=== PATIENT | male | born 1975 | race Caucasian/White ===

== ENCOUNTER 2017-11-21 18:43 | Emergency (ER) | payer OTHER ==
[~2017-11-21 18:43] MED LIST changes: -HYDR-2966 PO; -LISI-374 PO; -NEBI20TA4 PO; -RANI-318 PO
--- NOTE | 2017-11-21 18:49 | ER Report ---
History and Physical Time Seen By MD: 18:49 Home Meds Active Scripts Atenolol (ATENOLOL) 50 Mg Tablet, 1 TAB PO QDAY, #30 TAB Prov:TODD MANZO 11/12/16 Hx Substance Use Disorder: No Hx Alcohol Use: Yes Depart Departure Condition: Stable Disposition: HOME OR SELF-CARE KYRIE CARRERAP-BC Nov 21, 2017 18:49
--- NOTE | 2017-11-21 18:51 | ER Report ---
History and Physical Time Seen By MD: 18:51 HPI/ROS CHIEF COMPLAINT: Headache, vision changes, weakness HISTORY OF PRESENT ILLNESS: 42-year-old male alcoholic attempting to quit on his own at home. His wean down significantly from his heavy use of alcohol 12 drinks per day. He is on blood pressure medication. He admits to eye openers, blackouts. He denies withdrawal seizures. Patient's never sought treatment before. Patient states he hasn't eaten for 3 days. He states he's been avoiding salt. He is on 3 blood pressure medications lisinopril 40, by systolic 20 and hydrochlorothiazide 25 mg. Patient notes no fever, chills or productive cough. Patient notes blurry vision, headache and weakness. He states that he successfully detoxed at home and has not had any alcohol since a week ago . He shows no signs of withdrawal at this time. Patient's only previous ER visit was one year ago for prison clearance for alcohol intoxication. REVIEW OF SYSTEMS: Respiratory: No cough, no dyspnea. Cardiovascular: No chest pain, no palpitations. Gastrointestinal: No vomiting, no abdominal pain. Musculoskeletal: No back pain. 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 Patient denies any surgical history. Reviewed Nurses Notes: Yes Old Medical Records Reviewed: Yes Hx Substance Use Disorder: No Hx Alcohol Use: Yes Constitutional Vital Sign - Last 24 Hours 11/21/17 11/21/17 11/21/17 11/21/17 18:48 18:49 18:53 18:58 Temp 98.5 Pulse ??? 67 71 65 Resp 14 B/P (MAP) 100/53 (69) 100/53 Pulse Ox 96 97 93 O2 Delivery Room Air 11/21/17 11/21/17 11/21/17 11/21/17 19:00 19:03 19:06 19:08 Pulse 64 62 Resp 50 B/P (MAP) 73/45 (54) 84/48 (60) 72/48 (56) Pulse Ox 72 96 11/21/17 11/21/17 11/21/17 11/21/17 19:13 19:15 19:18 19:23 Pulse 63 64 61 Resp 13 14 13 B/P (MAP) 72/42 (52) Pulse Ox 96 95 94 11/21/17 11/21/17 11/21/17 11/21/17 19:28 19:30 19:45 19:50 Pulse 61 59 Resp 13 15 B/P (MAP) 128/94 (105) 60/42 (48) Pulse Ox 97 11/21/17 11/21/17 11/21/17 11/21/17 19:59 20:05 20:10 20:15 Pulse 60 55 56 Resp 13 15 15 B/P (MAP) 75/43 (54) 69/39 (49) Pulse Ox 97 93 O2 Delivery 11/21/17 11/21/17 11/21/17 11/21/17 20:30 20:35 20:40 21:00 Pulse 50 53 Resp 11 13 11 14 B/P (MAP) 74/46 (55) 87/61 (70) Pulse Ox 94 88 96 11/21/17 11/21/17 11/21/17 11/21/17 21:05 21:10 21:15 21:20 Pulse 51 Resp 23 19 14 9 B/P (MAP) 74/40 (51) Pulse Ox 100 11/21/17 11/21/17 11/21/17 11/21/17 21:25 21:30 21:35 21:40 Pulse 51 58 51 53 Resp 18 9 11 15 B/P (MAP) 80/51 (61) 88/55 (66) Pulse Ox 93 66 92 93 11/21/17 11/21/17 11/21/17 11/21/17 21:45 21:50 21:55 22:00 Pulse 55 50 50 52 Resp 11 12 13 20 B/P (MAP) 89/50 (63) 81/61 (68) Pulse Ox 94 89 85 82 Physical Exam Vital signs stable, afebrile, pulse ox normal General Appearance: The patient is alert, has no immediate need for airway protection and no current signs of toxicity. No acute distress, slow quiet affect HEENT: Pupils equal and round no injection. Anicteric sclera, oropharynx without redness or exudate, mucous. Membranes are moist Respiratory: Chest is non tender, lungs are clear to auscultation. No wheezing or rails Cardiac: regular rate and rhythm Gastrointestinal: Abdomen is soft and non tender, no masses, bowel sounds normal. No splenomegaly, no ascites Musculoskeletal: Neck: Neck is supple and non tender. No thyroid disease Extremities have full range of motion and are non tender. Skin: No rashes or lesions. DIFFERENTIAL DIAGNOSIS: After history and physical exam differential diagnosis was considered for weakness including but not limited to electrolyte abnormali ty, depression, anxiety, CVA, spinal cord abnormality, and infectious causes. Medical Decision Making Data Points Result Diagram: 11/21/17191511/21/171915 Laboratory Hematology Test 11/21/17 19:16 Red Blood Count 4.34 M/uL (4.00-5.60) Mean Corpuscular Volume 91.6 fL (80.0-96.0) Mean Corpuscular Hemoglobin 33.0 pg (26.0-33.0) Mean Corpuscular Hemoglobin Concent 36.1 g/dL (32.0-36.0) Red Cell Distribution Width 13.8 % (11.5-14.5) Mean Platelet Volume 8.0 fL (7.2-11.1) Neutrophils (%) (Auto) 65.1 % (39.4-72.5) Lymphocytes (%) (Auto) 23.4 % (17.6-49.6) Monocytes (%) (Auto) 8.4 % (4.1-12.4) Eosinophils (%) (Auto) 2.0 % (0.4-6.7) Basophils (%) (Auto) 1.1 % (0.3-1.4) Nucleated RBC Relative Count (auto) 0.1 /100WBC Neutrophils # (Auto) 4.7 K/uL (2.0-7.4) Lymphocytes # (Auto) 1.7 K/uL (1.3-3.6) Monocytes # (Auto) 0.6 K/uL (0.3-1.0) Eosinophils # (Auto) 0.1 K/uL (0.0-0.5) Basophils # (Auto) 0.1 K/uL (0.0-0.1) Nucleated RBC Absolute Count (auto) 0.01 K/uL Sodium Level 112 mmol/L (137-145) Potassium Level 2.8 mmol/L (3.5-5.0) Chloride Level 68 mmol/L (98-107) Carbon Dioxide Level 30 mmol/L (22-30) Blood Urea Nitrogen 49 mg/dl (9-21) Creatinine 4.60 mg/dl (0.66-1.25) Glomerular Filtration Rate Calc 14.0 Random Glucose 135 mg/dl (75-110) Calcium Level 8.3 mg/dl (8.4-10.2) Magnesium Level 2.1 mg/dl (1.7-2.2) Total Bilirubin 0.7 mg/dl (0.2-1.3) Aspartate Amino Transf (AST/SGOT) 41 U/L (0-35) Alanine Aminotransferase (ALT/SGPT) 35 U/L (0-56) Alkaline Phosphatase 90 U/L (0-126) Ammonia 27 UMOL/L (9-33) Total Protein 6.4 g/dl (6.3-8.2) Albumin 3.6 g/dl (3.5-5.0) Salicylates Level < 10 mg/L Salicylate Last Dose Date unk Acetaminophen Level 15 ug/ml Serum Alcohol < 10 mg/dl Chemistry Test 11/21/17 19:16 White Blood Count 7.1 k/uL (4.5-11.0) Red Blood Count 4.34 M/uL (4.00-5.60) Hemoglobin 14.3 g/dL (14.0-18.0) Hematocrit 39.7 % (42.0-52.0) Mean Corpuscular Volume 91.6 fL (80.0-96.0) Mean Corpuscular Hemoglobin 33.0 pg (26.0-33.0) Mean Corpuscular Hemoglobin Concent 36.1 g/dL (32.0-36.0) Red Cell Distribution Width 13.8 % (11.5-14.5) Platelet Count 260 K/uL (150-450) Mean Platelet Volume 8.0 fL (7.2-11.1) Neutrophils (%) (Auto) 65.1 % (39.4-72.5) Lymphocytes (%) (Auto) 23.4 % (17.6-49.6) Monocytes (%) (Auto) 8.4 % (4.1-12.4) Eosinophils (%) (Auto) 2.0 % (0.4-6.7) Basophils (%) (Auto) 1.1 % (0.3-1.4) Nucleated RBC Relative Count (auto) 0.1 /100WBC Neutrophils # (Auto) 4.7 K/uL (2.0-7.4) Lymphocytes # (Auto) 1.7 K/uL (1.3-3.6) Monocytes # (Auto) 0.6 K/uL (0.3-1.0) Eosinophils # (Auto) 0.1 K/uL (0.0-0.5) Basophils # (Auto) 0.1 K/uL (0.0-0.1) Nucleated RBC Absolute Count (auto) 0.01 K/uL Glomerular Filtration Rate Calc 14.0 Calcium Level 8.3 mg/dl (8.4-10.2) Magnesium Level 2.1 mg/dl (1.7-2.2) Total Bilirubin 0.7 mg/dl (0.2-1.3) Aspartate Amino Transf (AST/SGOT) 41 U/L (0-35) Alanine Aminotransferase (ALT/SGPT) 35 U/L (0-56) Alkaline Phosphatase 90 U/L (0-126) Ammonia 27 UMOL/L (9-33) Total Protein 6.4 g/dl (6.3-8.2) Albumin 3.6 g/dl (3.5-5.0) Salicylates Level < 10 mg/L Salicylate Last Dose Date unk Acetaminophen Level 15 ug/ml Serum Alcohol < 10 mg/dl Toxicology Test 11/21/17 19:16 Salicylates Level < 10 mg/L Salicylate Last Dose Date unk Acetaminophen Level 15 ug/ml Serum Alcohol < 10 mg/dl EKG/Imaging EKG Interpretation 12 lead EK Rhythm: normal sinus rhythm, rate of 62 bpm [place]: normal QRS: normal, prolonged QT noted ST segments: normal, no evidence of ischemia or dysrhythmia, no old EKGs for comparison Imaging X-ray: Two-view chest x-ray was obtained. I viewed the images myself on the PACS system. My interpretation of the images is: Infiltrate, no effusion, eventration of the right hemidiaphragm., No old chest x-rays to review The radiologist interpretation had no clinically significant variation from this interpretation. Results: CT scan of the head without contrast was obtained. The results of the study are Head CT scan without contrast COMPARISONS: None ADDITIONAL PERTINENT HISTORY: Weakness with headache and blurry vision TECHNIQUE: Multiple axial images were obtained from the skull base to the vertex without IV contrast. One of the following dose optimization techniques was utilized in the performance of this exam: Automated exposure control; adjustment of the mA and/or kV according to the patient's size; or use of an iterative reconstruction technique. Specific details can be referenced in the facility's radiology CT exam operational policy. FINDINGS: Midline shift: Negative Ventricles: Mild enlargement of the lateral and third ventricles. Otherwise negative Brain parenchyma: Patchy hypoattenuation within the periventricular and s ubcortical white matter, nonspecific but likely representing small vessel ischemic change on a chronic basis. No intraparenchymal hemorrhage or mass effect. Extra-axial spaces: Mild cerebral atrophy. Intracranial vasculature: Cavernous internal carotid artery calcifications. Otherwise negative Osseous structures: Negative Paranasal sinuses and mastoid air cells: Negative Surrounding soft tissues and orbits: Negative IMPRESSION: 1. Age related changes as described above. 2. No evidence of acute intracranial pathology. The study was read by the radiologist. I viewed the images myself on the PACS system. ED Course/Re-evaluation Clinical Indication for ER IV: Hydration, IV Access ED Course Patient was admitted to an examination room. H&P was done. The differential diagnoses was considered. Patient here with weakness, headache and blurry vision. Patient denies history of diabetes or blood sugar problems. Patient was an alcoholic, approximate 12 drinks per day for several years. He successfully weaned himself at home. His last alcohol was 1 week ago . He's not had any symptoms of withdrawal. Diagnostic evaluation is undertaken. Including a head CT. Chest x-ray and head CT are unremarkable. Diagnostic laboratory studies show sodium of 112, bicarbonate of 30, chloride of 60, P1 45 and creatinine of 4.6. With IV banana bag. His blood pressure is low on arrival at 100 with rest. It drops into the 70s. Patient remains asymptomatic and alert and conscious. He ambulates to the bathroom without any difficulty. He is unable to provide a urine since he so dehydrated. A tox screen was ordered but he was unable to provide a specimen. His CBC is normal except for mildly elevated H&H. Patient's ammonia levels unremarkable. His LFTs are only slightly elevated. Patient will need to be admitted and have his sodium replaced very slowly. A 2nd line was established. And a bolus of 1 L of normal saline was administered. Patient's blood pressure rapidly responded and came up to the upper 80s into the low 90s. 11/21/2017 9:02:35 pm case discussed with Dr. Thea Presley hospitalist on-call. He advises transferring to a facility with nephrology specialty and other specialty services. 11/21/2017 9:32:08 pm case discussed with Dr. Blanton hospitalist at [facility] and Dr. Moise, ER attending at [facility] who accepted the patient for transfer to their facility. Decision to Disposition Date: Nov 21, 2017 Decision to Disposition Time: 20:26 Critical Care Time I spent a total of 60 minutes of critical care time in obtaining history, performing a physical exam, bedside monitoring of interventions, collecting and interpreting tests and discussion with consultants but not including time spent performing procedures. Depart Departure Latest Vital Signs Vital Signs Date Time Temp Pulse Resp B/P (MAP) Pulse Ox O2 Delivery O2 Flow Rate FiO2 11/21/17 22:00 52 20 81/61 (68) 82 11/21/17 20:05 11/21/17 18:49 98.5 Impression: Primary Impression: Weakness Additional Impressions: Altered mental status Hyponatremia Acute renal failure History of alcohol dependence Hypotension Condition: Improved Disposition: XFER TO ACUTE CARE HOSPITAL Problem Qualifiers Additional Impressions: Altered mental status Altered mental status type: unspecified Qualified Codes: R41.82 - Altered mental status, unspecified Acute renal failure Acute renal failure type: unspecified Qualified Codes: N17.9 - Acute kidney failure, unspecified Hypotension Hypotension type: hypotension due to hypovolemia Qualified Codes: I95.89 - Other hypotension; E86.1 - HypovolROCIO Orona DO Nov 21, 2017 18:51
[2017-11-21] MEDS ORDERED: LISI-374 PO (18:56)
[2017-11-21] MEDS ORDERED: NEBI20TA4 PO (18:56)
[2017-11-21] MEDS ORDERED: RANI-318 PO (18:56)
[2017-11-21] MEDS ORDERED: HYDR-2966 PO (18:56)
[2017-11-21] MEDS ORDERED: THIAMINE HCL(*) 200 MG/2 ML IN 100 MG, FOLIC ACID(*) 50 MG/10 ML INJ 1 MG, MULTIVITAMIN... IV ONE (18:58)
--- NOTE | 2017-11-21 19:14 | EKG ---
FACILITY: [facility] PATIENT NAME: ITZ BELL : [id number] MR: [id number] V: [id number] EXAM DATE: ORDERING PHYSICIAN: ROCIO ORTEGA TECHNOLOGIST: SIMONE Florez Reason : Blood Pressure : / mmHG Vent. Rate : 062 BPM Atrial Rate : 062 BPM P-R Int : 190 ms QRS Dur : 116 ms QT Int : 528 ms P-R-T Axes : 026 055 027 degrees QTc Int : 535 ms Sinus rhythm Nonspecific ST findings Prolonged QT Abnormal ECG No previous ECGs available Confirmed by BANG SIDDIQUI ([id number]) on 11/22/2017 5:57:03 AM Referred By: Confirmed By:BANG SIDDIQUI
[2017-11-21 19:37] LABS: PLATELET COUNT, AUTOMATED 260 K/uL (150-450)
--- NOTE | 2017-11-21 20:02 | RADIOLOGY IMAGING REPORT ---
FACILITY: [facility] [place] PATIENT NAME: Neno Martin : 1975 MR: [id number] V: [id number] EXAM DATE: ORDERING PHYSICIAN: ROCIO ORTEGA TECHNOLOGIST: Location: [facility] Patient: Neno Martin : 1975 Visit/Account:[id number] Date of Sevice: 11/21/[address] scan without contrast COMPARISONS: None ADDITIONAL PERTINENT HISTORY: Weakness with headache and blurry vision TECHNIQUE: Multiple axial images were obtained from the skull base to the vertex without IV contrast . One of the following dose optimization techniques was utilized in the performance of this exam: Aut omated exposure control; adjustment of the mA and/or kV according to the patient's size; or use of an iterative reconstruction technique. Specific details can be referenced in the facility's radiology CT exam operational policy. FINDINGS: Midline shift: Negative Ventricles: Mild enlargement of the lateral and third ventricles. Otherwise negative Brain parenchyma: Patchy hypoattenuation within the periventricular and subcortical white matter, no nspecific but likely representing small vessel ischemic change on a chronic basis. No intraparenchyma l hemorrhage or mass effect. Extra-axial spaces: Mild cerebral atrophy. Intracranial vasculature: Cavernous internal carotid artery calcifications. Otherwise negative Osseous structures: Negative Paranasal sinuses and mastoid air cells: Negative Surrounding soft tissues and orbits: Negative IMPRESSION: 1. Age related changes as described above. 2. No evidence of acute intracranial pathology. Report Dictated By: Reynaldo Bangura MD at 11/21/2017 7:55 PM Report E-Signed By: Reynaldo Bangura MD at 11/21/2017 7:58 PM [id number]
--- NOTE | 2017-11-21 21:04 | RADIOLOGY IMAGING REPORT ---
FACILITY: [facility] PATIENT NAME: Neno Martin : 1975 MR: [id number] V: [id number] EXAM DATE: ORDERING PHYSICIAN: ROCIO ORTEGA TECHNOLOGIST: Location: [facility] [place] Patient: Neno Martin : 1975 Visit/Account:[id number] Date of Sevice: 11/21/2017 2 VIEWS CHEST INDICATION: Weakness and cough COMPARISON: None available FINDINGS: Heart size within normal limits. Minimal linear type atelectasis or scarring is noted within the right middle lobe. Otherwise, lungs a re clear. No effusion or pneumothorax. No acute bony finding. IMPRESSION: 1. Minimal right middle lobe atelectasis/scarring. Otherwise, normal Report Dictated By: Tashi Aponte MD at 11/21/2017 9:00 PM Report E-Signed By: Tashi Aponte MD at 11/21/2017 9:01 PM WSN:[id number]
[2017-11-21] MEDS ORDERED: NS(*) 0.9% 1000 ML BAG 1,000 ML IV ONE (21:30)
[2017-11-21] MEDS ORDERED: POTASSIUM CHL 20 MEQ TABCR PO ONE (21:45)
[2017-11-21 22:00] VITALS: BP 81/61
== END 2017-11-21 22:07 | disposition short-term general hospital (02) ==
LOC: ER 19:10
DX: R53.1 Weakness (principal); R41.82 Altered mental status, unspecified; E87.1 Hypo-osmolality and hyponatremia; N17.9 Acute kidney failure, unspecified; I95.9 Hypotension, unspecified; E86.1 Hypovolemia; F10.21 Alcohol dependence, in remission
CPT/HCPCS: 80320; 80329; 82140; 83735; 84443; 85025; 93005; 96361; 96365; 99285; J3411; J3475; J7030; 70450; 71046; 82040; 82247; 82310; 82374; 82435; 82565; 82947; 84075; 84132; 84155; 84295; 84450; 84460; 84520; 99291

== ENCOUNTER → 2017-11-21 | Outpatient (CLI) | payer OTHER ==
[~2017-11-21] MED LIST: ATEN-1 PO; HYDR-2966 PO; LISI-374 PO; NEBI20TA4 PO; RANI-318 PO
== END ==
LOC: AMB 21:58
PROVIDERS: ATTEND Nurse Practitioner
DX: N19 Unspecified kidney failure (principal)
CPT/HCPCS: A0425; A0426